=== PATIENT | female | born 1955 | race Caucasian/White ===

== ENCOUNTER 2023-05-24 20:56 | Inpatient (IN) | payer MEDICARE, OTHER, SELFPAY ==
[2023-05-24 15:58] VITALS: BP 139/74
--- NOTE | 2023-05-24 17:15 | ED.GENMED ---
History of Present Illness
General
Chief Complaint: Cough
Source: patient
Time Seen by Provider: 05/24/23 17:04
Travel History
Have you had any contact with someone who has COVID-19?: No
Do you have any symptoms of coronavirus? Fever > 100 degrees, chills, cough, shortness of breath, sore throat, loss of taste or smell, muscle aches, or headache?: No
History of Present Illness
History of Present Illness:
67-year-old female presents to the emergency room complaining of cough which has been present for the past 2 to 3 months. Patient had a chest x-ray April which was evidently unremarkable. She is also complaining of a constant pain in her right
upper quadrant which has been present for quite some time. Patient has had a fever over the past 2 to 3 days. Temperature in triage was 100.7. Patient was sent to the emergency by her primary care provider. It was noted that the patient had a CT
performed October 14 for abdominal pain. At that time there was a abnormality noted in the liver. Patient was unaware of this finding. The interpretation of the CT at that time suggest this liver lesion could be infection or tumor. Primary care
doctor was concerned the fever may be related to this prompting the referral to the emergency room.
Past History
Past History
ED Past Medical History: Fibromyalgia
ED Past Surgical History: , Gynecological (hysterectomy, lumpectomy) and Tonsilectomy
Social History
Tobacco: Non-smoker
Alcohol: Occasional
Drug: None
Personal:
Living: with family
Employment: Employed
Phy Exam
Physical Exam
Physical Exam:
General: Awake, Alert, Oriented X3. No acute distress.
Vitals: unremarkable
Head: Atraumatic
Eyes: Pupils equal, EOMI
Throat: Airway intact, no exudates
Neck: Trachea midline
Lungs: Clear and equal b/l
Heart: Regular rate, no murmurs
Abd: Soft, mild right upper quadrant tenderness palpation, No pulsatile mass
Neuro: Nonfocal
Skin: Warm, dry, no rash
Extremities: pulses equal b/l, no edema
Course
Orders/Labs/Results
Orders:
Orders
05/24/23 17:15
Cardiac Monitoring- Treatment ONCE
0.9% Sodium Chloride 1000 ml [Nss] 1,000 ml IV BOLUS
Acetaminophen [Tylenol] 650 mg PO NOW STA
05/24/23 17:22
CT Chest/abd/pel W Iv Cont Urgent
Comment:
Reason For Exam: fever, abd pain, abnormal appearing liver CT october
05/24/23 17:37
Complete Blood Count/With Diff Urgent
Comprehensive Metabolic Panel Urgent
Lactic Acid Q4H
Comment: CANCEL 2nd LACTIC ACID IF 1st LACTIC ACID IS LESS THAN 2
Blood Culture Q30M
AUDRA Source: Blood/Venous
Specimen Description:
05/24/23 17:40
Ibuprofen [Motrin] 400 mg PO NOW STA
05/24/23 18:36
Urinalysis Reflex To Culture Urgent
Date Specimen was Collected: 05/24/23
Time Specimen was Collected: 18:13
Urine Microscopic Reflex Cult Urgent
05/24/23 18:40
Blood Culture Q30M
AUDRA Source: Blood/Venous
Specimen Description:
05/24/23 21:30
Lactic Acid Q4H
Comment: CANCEL 2nd LACTIC ACID IF 1st LACTIC ACID IS LESS THAN 2
Abnormal Lab Results
05/24/23 05/24/23
17:37 18:36
WBC 11.6 H 10^3/uL
(4.8-10.8)
MCHC 32.7 L g/dL
(33.0-37.0)
Abs Immat Gran (auto) 0.1 H 10^3/uL
(0-0.05)
Absolute Neuts (auto) 9.3 H 10^3/uL
(1.4-6.5)
Absolute Lymphs (auto) 0.7 L 10^3/uL
(1.2-3.4)
Absolute Monos (auto) 1.5 H 10^3/uL
(0.1-0.6)
Neutrophils % 80.4 H %
(42.2-75.2)
Lymphocytes % 6.1 L %
(20.5-51.1)
Monocytes % 12.6 H %
(1.7-9.3)
Carbon Dioxide 31 H mmol/L
(22-30)
Glucose 102 H mg/dl
(70-99)
AST 69 H U/L
(14-36)
ALT 39 H U/L
(0-35)
Alkaline Phosphatase 293 H U/L
(38-126)
Total Protein 5.9 L g/dl
(6.3-8.2)
Albumin 3.4 L g/dl
(3.5-5.0)
Urine Ketones 2+ A
(Negative)
Leukocyte Esterase Rfl Trace A
(Negative)
Urine Bacteria (Reflex) Few A
(Negative)
05/24/23 17:37
05/24/23 17:37
Vital Signs
Initial and Last Documented VS:
Initial Vital Signs
Temp Pulse Resp BP Pulse Ox
100.7 F H 99 16 139/74 98
05/24/23 15:58 05/24/23 15:58 05/24/23 15:58 05/24/23 15:58 05/24/23 15:58
Last Documented Vital Signs
Temp Pulse Resp BP Pulse Ox
100.7 F H 88 15 139/74 96
05/24/23 15:58 05/24/23 17:48 05/24/23 17:48 05/24/23 15:58 05/24/23 17:48
MDM/Problems Addressed
Differential Diagnosis Includes:
pneumonia, hepatic abscess, hepatic neoplasm,
MDM/Problems Addressed:
Patient presents with fever. She has had a cough for several weeks. Labs show elevated LFTs. UA does not appear infected. CT chest/abdomen/pelvis shows abnormalities in the liver with one having rim enhancement raising ? for abscess however
other lesions are not rim-enancing. Given high fever of 103 I will start iv abx and admit
*Critical Care Note
Total Time (30-74mins, 75-104mins- exclusive of procedures): Not Applicable
ED Attending Note
-
Portions of this chart may have been created with voice recognition software.� Occasional wrong word or��sound alike� substitutions may have occurred due to the inherent limitations of voice recognition software.
Discharge Plan
Departure
Patient Disposition: Admit
Date of Disposition: 05/24/23
Time of Disposition: 20:13
Admit to: Med/Surg
Presentation/result/management discussed w/ accepting MD/DO: Hospitalist
Condition: Fair
Discharge Problem:
Fever, Liver mass
Prescriptions:
No Action
cholecalciferol (vitamin D3) [Vitamin D3] 400 UNITS tablet
400 units PO DAILY
esomeprazole magnesium [Nexium 24HR] 20 MG capsule,delayed release(DR/EC)
20 mg PO DAILY
omega 8-art-kyj-fish oil [Fish Oil] 1,000 mg (120 mg-180 mg) Capsule
1 cap PO DAILY Qty: 0
multivitamin Tablet
1 tab PO DAILY
benzonatate 200 mg capsule
200 mg PO TID
albuterol sulfate 90 mcg/actuation HFA aerosol inhaler
2 puff INHALATION R Q4 PRN (Reason: sob/wheezing)
Referrals:
Yanni Kuo DO [Family Provider] -
Interventions
Interventions:
*Risk Screen - Suicide Last Done: 05/24/23 17:47
*General Assessment Last Done: 05/24/23 17:47
*Neglect/Abuse Screening Last Done: 05/24/23 17:47
ED- Fall Risk Assessment Last Done: 05/24/23 17:47
*ED COVID-19 Vaccine History Last Done: 05/24/23 15:58
ED- Pulmonary Assessment Last Done: 05/24/23 17:47
[2023-05-24] MEDS: NSS 1000 IV ×2 (17:36→22:16)
[2023-05-24] MEDS: MOTRIN 400 MG PO (17:42)
[2023-05-24 17:44] LABS: % Basophils 0.5 % (0-2); % Immature Granulocytes 0.4 % (0-0.5); % Lymphocytes 6.1 % (20.5-51.1); % Monocytes 12.6 % (1.7-9.3); % Neutrophils 80.4 % (42.2-75.2); Absolute Basophils 0.1 10^3/uL (0-0.2); Absolute Immature Granulocytes 0.1 10^3/uL (0-0.05); Absolute Lymphocytes 0.7 10^3/uL (1.2-3.4); Absolute Monocytes 1.5 10^3/uL (0.1-0.6); Absolute Neutrophils 9.3 10^3/uL (1.4-6.5); Hematocrit 38.8 % (37.0-47.0); Hemoglobin 12.7 g/dL (12.0-16.0); Mean Corp Hgb Conc. 32.7 g/dL (33.0-37.0); Mean Corpuscular Volume 88.6 fL (81.0-99.0); Mean Platelet Volume 10.1 fL (7.4-10.4); Nucleated Red Blood Cells % 0 %; Platelet Count 251 10^3/uL (130-400); Red Blood Cell Count 4.38 10^6/uL (4.20-5.40); Red Cell Dist. Width 13.7 % (11.5-14.5); White Blood Cell Count 11.6 10^3/uL (4.8-10.8)
[2023-05-24 17:56] LABS: Lactic Acid 1.2 mmol/L (0.7-2.0)
[2023-05-24 17:58] LABS: ALT (SGPT) 39 U/L (0-35); AST (SGOT) 69 U/L (14-36); Albumin 3.4 g/dl (3.5-5.0); Alkaline Phosphatase 293 U/L (38-126); Blood Urea Nitrogen 17 mg/dl (7-17); Calcium 9.2 mg/dl (8.4-10.2); Carbon Dioxide 31 mmol/L (22-30); Chloride 99 mmol/L (98-107); Glucose 102 mg/dl (70-99); Potassium 4.1 mmol/L (3.5-5.1); Sodium 137 mmol/L (135-145); Total Bilirubin 0.8 mg/dl (0.2-1.3); Total Protein 5.9 g/dl (6.3-8.2); eGFR > 60.00
[2023-05-24 18:00] VITALS: BP 126/49
[2023-05-24 18:50] LABS: Urine Albumin Trace (Neg - Trace); Urine Bilirubin Negative (Negative); Urine Character Clear (Clear); Urine Color Yellow; Urine Glucose Negative (Negative); Urine Ketone 2+ (Negative); Urine Leukocyte Trace (Negative); Urine Nitrite Negative (Negative); Urine Occult Blood Negative (Negative); Urine Urobilinogen 1+ (Neg - 1+)
[2023-05-24 18:57] LABS: Urine Red Blood Cell None Seen /HPF (0-2); Urine Squamous Cell >30 /LPF (Few)
[2023-05-24 18:58] LABS: Urine Bacteria Few (Negative)
[2023-05-24 20:00] VITALS: BP 138/65
[2023-05-24] MEDS: FLAGYL 500 MG 100 IV (20:35)
--- NOTE | 2023-05-24 20:46 | HPS.HSE ---
Addendum entered and electronically signed by Dayday Herman DO 05/24/23 23:59:
A/P:
COVID Positive
- Testing in ED shows COVID-19 positive.
- Suspect this is etiology of fever, though hepatic source may still be possible.
- Follow proper precautions.
- Not hypoxemic, etc at present so no role for any additional COVID-specific therapies.
- Follow for any new / worsening symptoms.
Original Note:
Family Physician
-
Family Physician: Yanni Kuo
Chief Complaint
-
Fever, Cough
History of Present Illness
Patient is a 67y F with PMH significant for GERD who presents to ED complaining of fever, cough and abdominal pain. Patient states that she has had a hacking, minimally productive cough for about 12 weeks now. She has been evaluated as an
outpatient by her PCP and Pulmonary. CXR has been unremarkable. She was recently treated with empiric courses of doxycycline (04/28 - 05/04) and azithromycin (05/09 - 05/13) without improvement in her symptoms. For the past 2 days, patient has also
noted fever at home as high as 104. Today she spoke with her PCP who advised she present to the ED for further evaluation.
Patient notes that she has had intermittent R flank and RUQ abdominal pain for several months.
She was seen here in October 2022 for this complaint and found to have abnormal CT at that time. She was referred for Surgical evaluation for possible biliary colic and underwent cholecystectomy in November 2022.
Patient states that she has continued to have intermittent discomfort since that time. She notes 40 lbs of weight loss (unintentional) since September 2022.
Patient states that she is up to date with mammography. Her last colonoscopy was about 5-7 years ago by her recollection.
Medical History
Past Medical History
Past Medical History: Reports Other
Additional Past Medical History:
GERD
Past Surgical History: Reports Other
Additional Past Surgical History:
Right DONNA
Lap Cholecystectomy
Bladder Sling
Right Lumpectomy (benign)
T&A
[facility]
Social History
Tobacco: Non-smoker
Alcohol: Occasional (Rare)
Drug: None
Personal:
Living: With Family
Family History
Family History: Other (Sister (x 2): Breast Cancer Brother: Colon Cancer Brother: Esophageal Cancer)
Allergies / Home Medications
Allergies reflects when Allergies were last updated in [employer].
Home Medications with original date entered in [employer]
Allergy/Medication List:
Allergies
Allergy/AdvReac Type Severity Reaction Status Date / Time
bee venom protein (honey bee) Allergy hives, Verified 05/24/23 16:01
racing
heart
morphine Allergy Itching Verified 05/24/23 16:01
oxycodone HCl [From Percocet] Allergy itching, Verified 05/24/23 16:01
tightness
Penicillins Allergy rash, Verified 05/24/23 16:01
tight
throat
propoxyphene napsylate Allergy itching, Verified 05/24/23 16:01
[From Darvocet-N 100] tightness
shellfish derived Allergy tight, Verified 05/24/23 16:01
itchy
throat
Home Medications
cholecalciferol (vitamin D3) 10 mcg (400 unit) tablet (Vitamin D3) 400 units PO DAILY Supplement 06/03/19
esomeprazole magnesium 20 mg capsule,delayed release (Nexium 24HR) 20 mg PO DAILY Gastrointestinal Issue 06/03/19
omega 4-msb-qnl-fish oil 1,000 mg (120 mg-180 mg) capsule (Fish Oil) 1 cap PO DAILY High Cholesterol ##0 11/16/22
albuterol sulfate 90 mcg/actuation aerosol inhaler 2 puff inhalation R Q4 PRN sob/wheezing 05/24/23
benzonatate 200 mg capsule 200 mg PO TID 05/24/23
multivitamin 1 tab PO DAILY 05/24/23
Review of Systems
-
History Source: Patient
A 12 point ROS was completed and negative except as noted: Yes
Constitutional: Reports Fever, Weight Loss and Fatigue; Denies Night Sweats or Chills
EENT: Denies Sore Throat
Respiratory: Reports Cough; Denies Hemoptysis or Trouble Breathing
Cardiac: Denies Chest Pain, Diaphoresis or Palpitations
Abdomen/GI: Reports Abdominal Pain and Diarrhea (with fatty foods); Denies Nausea or Vomiting
: Denies Dysuria or Frequency
Musculoskeletal: Denies Joint Pain or Edema
Neurological: Denies Dizzy or Headache
Psych: Denies Depression or Anxiety
Physical Exam
Vital Signs
Vital Signs
Temp Pulse Resp BP Pulse Ox
100.3 F 89 15 138/65 94
05/24/23 20:05 05/24/23 20:00 05/24/23 20:00 05/24/23 20:00 05/24/23 20:00
Physical Exam
General: Other (67y F in no acute distress)
HEENT: Moist mucous membranes and PERRLA
Respiratory: Other (Few rales at R base. Otherwise clear. Cough with deep inspiration.)
Cardiac: S1/S2 and Regular Rhythm; No Murmur
GI: Soft, Non Distended, Normal Bowel Sounds and Other (Pos tenderness along entire upper abdomen. No rebound / guarding.)
Musculoskeletal: No Clubbing, No Cyanosis and No Edema
Neuro: AO x 3
Laboratory Results
-
05/24/23 17:37
05/24/23 17:37
Laboratory Results
Lactic Acid 1.2 mmol/L (0.7-2.0) 05/24/23 17:37
Total Bilirubin 0.8 mg/dl (0.2-1.3) 05/24/23 17:37
AST 69 U/L (14-36) H 05/24/23 17:37
ALT 39 U/L (0-35) H 05/24/23 17:37
Alkaline Phosphatase 293 U/L (38-126) H 05/24/23 17:37
Impression/Plan
-
A/P: Patient is a 67y F with PMH significant for GERD who presents to ED complaining of fever, cough and abdominal pain.
Fever
Hepatic Lesions
- Admit for further evaluation and treatment.
- ? tumor fever secondary to apparent metastases v hepatic abscess(es).
- Cover with IV abx for now (Levo / Flagyl given PCN allergy).
- IR eval in AM for biopsy / biopsies - multiple areas with different appearance / morphologies.
- Follow-up results of biopsy re: Gram stain, culture, cytology.
- Follow-up systemic cultures / blood cultures.
- Consider ID and / or Oncology consults depending on results of biopsies / clinical course.
- COVID / influenza testing now for completeness given new fever last 2 days.
- Follow for any new / worsening symptoms.
- Note family history of malignancy (GI and breast).
- Would likely benefit from endoscopic evaluation given fam history of esophageal and colon cancer as well as personal history of GERD.
- Will consult GI for further recommendations.
Cough
- Cough for the past 12 weeks seems likely secondary to diaphragmatic irritation from liver lesion(s).
- Supportive care.
- No evidence of primary pulmonary disease, pneumonia, etc.
GERD
- Continue daily PPI.
DVT Prophylaxis: SCDs
Code Status: Full
[2023-05-24 21:06] LABS: COVID-19 Antigen Positive (Negative)
[2023-05-24 21:53] VITALS: BP 127/60; BMI 28.5
[2023-05-24] MEDS: LEVAQUIN 100 IV (22:23)
[2023-05-25] VITALS (7 sets, daily range): BP systolic 95–145; BP diastolic 56–88; BMI 28.5
[2023-05-25] MEDS: FLAGYL 500 MG 100 IV ×2 (03:17→14:14)
[2023-05-25 04:56] LABS: Hematocrit 36.1 % (37.0-47.0); Hemoglobin 11.9 g/dL (12.0-16.0); Mean Corpuscular Hgb 29.4 pg (27.0-31.0); Mean Corpuscular Volume 89.1 fL (81.0-99.0); Mean Platelet Volume 10.3 fL (7.4-10.4); Platelet Count 231 10^3/uL (130-400); Red Blood Cell Count 4.05 10^6/uL (4.20-5.40); Red Cell Dist. Width 13.6 % (11.5-14.5); White Blood Cell Count 9.2 10^3/uL (4.8-10.8)
[2023-05-25 05:19] LABS: ALT (SGPT) 37 U/L (0-35); AST (SGOT) 65 U/L (14-36); Albumin 3.1 g/dl (3.5-5.0); Alkaline Phosphatase 282 U/L (38-126); Blood Urea Nitrogen 12 mg/dl (7-17); Calcium 8.4 mg/dl (8.4-10.2); Carbon Dioxide 27 mmol/L (22-30); Chloride 105 mmol/L (98-107); Direct Bilirubin 0.6 mg/dl (0.0-0.4); Estimated Creatinine Clearance 82 ml/min; Glucose 95 mg/dl (70-99); Potassium 3.9 mmol/L (3.5-5.1); Sodium 136 mmol/L (135-145); Total Bilirubin 0.6 mg/dl (0.2-1.3); Total Protein 5.4 g/dl (6.3-8.2); eGFR > 60.00
[2023-05-25] MEDS: TESSALON PERLES 200 MG PO ×3 (06:51→20:15)
[2023-05-25 08:07] LABS: INR 1.22; PT 15.2 Sec (11.4-14.6)
[2023-05-25] MEDS: NSS (PRESERVATIVE FREE) 10 ML IV (08:29)
[2023-05-25] MEDS: PROTONIX IV 40 MG IV (08:30)
--- NOTE | 2023-05-25 09:08 | W.PN.HOSP.TC ---
Today's Communication/Plan
-
start paxlovid
levaquin/Flagyl
F/U IR aspiratoin/biopsy results
Assessment / Plan
Assessment / Plan
A/P: � Patient is a 67y F with PMH significant for GERD who presents to ED complaining of fever, cough and abdominal pain.
CT A/P
IMPRESSION: No acute pathology of the chest, abdomen pelvis identified.
Findings suggesting hepatic metastasis. A small abscess in the upper posterior right lobe of the liver cannot be excluded. Comparison is difficult because the prior study was performed without IV contrast.
Hepatic cysts. Grossly stable.
Minimal free fluid about the liver probably ascites. Probably stable
Mild hepatomegaly. Progressed
Covid +
Fevers
-patient is not hypoxic
-will start Paxlovid (no drug interactions)
Hepatic Lesions
�- ? tumor fever secondary to apparent metastases v hepatic abscess(es).
�- conitnue Levaquin/Flagyl given penicillin allergy
�- IR eval in AM for biopsy / biopsies - multiple areas with different appearance / morphologies.
�- Follow-up results of biopsy re: Gram stain, culture, cytology.
�- Follow-up systemic cultures / blood cultures.
�- Consider ID and / or Oncology consults depending on results of biopsies / clinical course. Discussed briefly with Oncology this AM; will follow up once path received
�- Note family history of malignancy (GI and breast).
�- Would likely benefit from endoscopic evaluation given fam history of esophageal and colon cancer as well as personal history of GERD.
�- Will consult GI for further recommendations.
GERD
�- Continue daily PPI.
DVT Prophylaxis:� SCDs while awaiting upcoming procedure
Code Status:� Full
Anticipated Discharge: 24 - 48 hours
Subjective/Interval History
-
Date of Service: May 25, 2023
she feels fatigued, didn't sleep well
low grade fevers
mild shortness of breath, no chest pain
Objective Data
-
Labs:
Laboratory Results
05/25/23 05/25/23
04:42 07:28
WBC 9.2
Hgb 11.9 L
Hct 36.1 L
Plt Count 231
PT 15.2 H
INR 1.22
Sodium 136
Potassium 3.9
Chloride 105
Carbon Dioxide 27
BUN 12
Creatinine 0.7
Glucose 95
Calcium 8.4
Total Bilirubin 0.6
AST 65 H
ALT 37 H
Alkaline Phosphatase 282 H
Vital Signs:
Vital Signs
Temp Pulse Resp BP Pulse Ox
100.5 F H 94 18 145/81 94
05/25/23 07:05 05/25/23 07:05 05/25/23 07:05 05/25/23 07:05 05/25/23 07:05
Review of Systems
-
History Source: Patient
All other systems: Reviewed and negative
Physical Exam
-
General: No Apparent Distress and Conversant
HEENT: PERRLA
Respiratory: Negative Wheezes
Cardiac: Regular Rhythm and S1/S2
GI: Soft and Nontender
Musculoskeletal: No Edema
Skin: Warm and Dry; Negative Rash
Neuro: AO x 3
Psych: Calm
Data Reviewed
-
Diagnostic Radiology: Report Reviewed by me
Labs: Labs Reviewed by me
--- NOTE | 2023-05-25 09:19 | CON.GI ---
Addendum entered and electronically signed by Fernanda Sanchez MD 05/25/23 15:53:
I saw and examined the patient.
The APPLICATIONS PROCESSOR or PA's note was reviewed and I agree with the note.
Comment: 67-year-old female with history of osteoarthritis, fibromyalgia, colon polyps presenting with complaints of right upper quadrant abdominal pain which has been chronic for several months, fever and cough, noted to be COVID-positive, CT scan
of the chest/abdomen and pelvis with IV contrast showing multiple various rounded hypodense hepatic lesions in the right lobe of the liver concerning for metastatic disease. Patient denies any other GI complaints, no nausea, vomiting, trouble
swallowing. No constipation, diarrhea, blood in the stool or black stool. She did lose 40 pounds since October 2022. History of colonoscopy about 7 or 8 years ago at [place], polyps removed, family history of colon cancer in brother. Elevated
transaminases and alkaline phosphatase noted.
Reviewed CT 10/14/2022, 10 cm area of heterogeneous decreased attenuation in the right lobe of the liver which seems to be new, rule out infection versus tumor.
Patient just came back from IR guided biopsy of the hepatic lesion, has some discomfort in the area of the biopsy but not significant.
No family history of liver disease, cirrhosis. Social alcohol, not on a regular basis. Does not smoke.
-Right upper quadrant abdominal pain, CT scan showing possible metastatic lesions in the liver, primary not known yet
No evidence of underlying cirrhosis
Await results from IR guided liver biopsy
Will check hepatitis B/C, AFP, CEA, CA 19�9
Will check MRI of the liver. Currently has cough related to COVID. Once symptoms better, needs MRI of the liver with and without contrast as inpatient.
Oncology evaluation.
Monitor liver enzymes, elevation likely related to underlying tumor
-History of colon cancer in brother and personal history of colon polyps
Overdue for colonoscopy. Await IR biopsies first
-COVID-positive
Management per medical team
Will follow for now
Original Note:
Consultation
-
Date/Time Consultation Requested: 05/24/232225
Date/Time Consultation Performed: 05/25/23 0900
Requesting Provider: Dr. Herman
Performing Provider: Dr. Sanchez/VLAD Coy
Reason for Consultation: Liver lesions
Medical History
Chief Complaint / HPI
Chief Complaint: fever
History of Present Illness:
67 y/o female with PMH of fibromyalgia, anxiety, osteoarthritis, GERD, personal hx of colon polyps, cholelithiasis s/p cholecystectomy 11/2022 who presents to the ER with cough x 2 months, fever, and RUQ pain. Recently as an outpatient she was
treated with Doxycycline (04/28/23-05/04/23) and Azithromycin
(05/09/23-05/13/23) for her cough without any change in sx. Patient was found to be positive for COVID. She was also found to multiple liver lesions in the right lobe of the liver prompting GI consultation. The patient states that since September 2022 she
has had intermittent RUQ pain that she describes as dull with 'jabs' of pain. She would also have intermittent fevers (low grade) intermittently as well. She has lost 40 lbs since November. She denies any nausea, vomiting, melena, hematochezia,
dysphagia, odynophagia, acholic stools, bilirubinuria, early satiety or pruritus. She does state that she developed a cough about 2 months ago that is dry. She denies any hx of hepatitis, jaundice, known liver disease, tattoos or IVDA. She drinks
rare ETOH (3 drinks a year) she does not smoke. She has a fam hx of colon cancer in 1 brother and esophageal cancer in another, sister with breast cancer. She has a personal hx of colon polyps. She states her last colonoscopy was about 8-9 years ago
in [place] and she had colon polyps and she was told to have a repeat in 5 years. {The patient did have a CT of the Abd/Pelvis without oral or IV contrast performed
10/14/22 when she went to the ER with right sided pain (full report will be detailed below-> excerpt):Evaluation of the solid organs of the abdomen are markedly limited without intravenous contrast, including the liver. Subcentimeter simple hepatic
cyst is seen image 22 series 202 and larger 5 cm simple cyst is seen, image 23 series 202. There is a markedly ill-defined, somewhat heterogeneous area of decreased attenuation suggested throughout the posterior segment of the right lobe of the
liver, new in the interval since prior study overall measuring at least 10 cm. Cholelithiasis is again noted. There is no biliary tract dilatation. } Patient was unaware of findings current CT performed -> CT Chest Abd/Pelvis with IV contrast
05/24/23: �No acute pathology of the chest, abdomen pelvis identified. Findings suggesting hepatic metastasis. A small abscess in the upper posterior right lobe of the liver cannot be excluded. Comparison is difficult because the prior study was
performed without IV contrast.Hepatic cysts. Grossly stable. Minimal free fluid about the liver probably ascites. Probably stable. Mild hepatomegaly. Progressed.
Past Medical History
Past Medical History: Fibromyalgia, GERD and Other (Anxiety, osteoarthritis, colon polyps, cholelithiasis)
Past Surgical History: Cholecystectomy, Gynecological (hysterectomy, bladder sling), Orthopedic (right THR, ), Tonsilectomy and Other (right lumpectomy)
Social History
Tobacco: Non-Smoker
Alcohol: Occasional (3 times a year)
Drug: None
Personal:
Living: With Family
Family History
Family History: Other (Brother colon cancer, brother esophageal cancer, sister breast cancer)
Allergies / Home Medications
Allergy/AdvReac Type Severity Reaction Status Date / Time
bee venom protein (honey bee) Allergy hives, Verified 05/24/23 16:01
racing
heart
morphine Allergy Itching Verified 05/24/23 16:01
oxycodone HCl [From Percocet] Allergy itching, Verified 05/24/23 16:01
tightness
Penicillins Allergy rash, Verified 05/24/23 16:01
tight
throat
propoxyphene napsylate Allergy itching, Verified 05/24/23 16:01
[From Darsonjat-N 100] tightness
shellfish derived Allergy tight, Verified 05/24/23 16:01
itchy
throat
Medication Instructions Recorded
cholecalciferol (vitamin D3) 10 400 units PO DAILY Supplement 06/03/19
mcg (400 unit) tablet (Vitamin D3)
esomeprazole magnesium 20 mg 20 mg PO DAILY Gastrointestinal 06/03/19
capsule,delayed release (Nexium Issue
24HR)
omega 2-hap-ugk-fish oil 1,000 mg 1 cap PO DAILY High Cholesterol ##0 11/16/22
(120 mg-180 mg) capsule (Fish Oil)
albuterol sulfate 90 mcg/actuation 2 puff inhalation R Q4 PRN 05/24/23
aerosol inhaler sob/wheezing
benzonatate 200 mg capsule 200 mg PO TID 05/24/23
multivitamin 1 tab PO DAILY 05/24/23
Review of Systems
-
All other systems: A 12 pt ROS was Negative except as stated above in HPI
Vital Signs
Temp Pulse Resp BP Pulse Ox
100.5 F H 94 18 145/81 94
05/25/23 07:05 05/25/23 07:05 05/25/23 07:05 05/25/23 07:05 05/25/23 07:05
Physical Exam
Exam
General: No Apparent Distress
HEENT: Anicteric
Respiratory: Clear
Cardiac: Regular Rhythm
GI: Soft, Non Distended, Normal Bowel Sounds and Tender (Upper abdomen R>L)
Musculoskeletal: No Edema
Skin: Warm and Dry
Neuro: AO x 3
Psych: Calm
Results
WBC 9.2 10^3/uL (4.8-10.8) 05/25/23 04:42
Hgb 11.9 g/dL (12.0-16.0) L 05/25/23 04:42
Hct 36.1 % (37.0-47.0) L 05/25/23 04:42
MCV 89.1 fL (81.0-99.0) 05/25/23 04:42
Plt Count 231 10^3/uL (130-400) 05/25/23 04:42
Absolute Neuts (auto) 9.3 10^3/uL (1.4-6.5) H 05/24/23 17:37
PT 15.2 Sec (11.4-14.6) H 05/25/23 07:28
INR 1.22 05/25/23 07:28
Sodium 136 mmol/L (135-145) 05/25/23 04:42
Potassium 3.9 mmol/L (3.5-5.1) 05/25/23 04:42
Chloride 105 mmol/L (98-107) 05/25/23 04:42
Carbon Dioxide 27 mmol/L (22-30) 05/25/23 04:42
BUN 12 mg/dl (7-17) 05/25/23 04:42
Creatinine 0.7 mg/dL (0.6-1.0) 05/25/23 04:42
Calcium 8.4 mg/dl (8.4-10.2) 05/25/23 04:42
Total Bilirubin 0.6 mg/dl (0.2-1.3) 05/25/23 04:42
AST 65 U/L (14-36) H 05/25/23 04:42
ALT 37 U/L (0-35) H 05/25/23 04:42
Alkaline Phosphatase 282 U/L (38-126) H 05/25/23 04:42
Diagnostic Image Results:
CT Chest/Abd/Pelvis with IV contrast 05/24/23:
FINDINGS:
There are no abnormal pleural or parenchymal pulmonary masses.
There is no significant parenchymal airspace disease.
There is no pleural effusion.
There are no abnormal mediastinal masses.
There is no hilar lymphadenopathy.
There is no mediastinal lymphadenopathy.
There is no axillary lymphadenopathy.
There is mild right lower lobe atelectasis versus
Abdomen and pelvis: The spleen, gallbladder and pancreas are unremarkable. The liver is enlarged measuring 19.7 cm in length. It previously measured 18.9 cm in length. There are multiple various sized rounded hypodense hepatic lesions, most in the
right lobe of liver, concerning for metastatic disease. The largest is in the posterior right lobe and measures approximately 8.7 cm. There are a few additional well-circumscribed hypodense hepatic lesions consistent with cysts. The largest in the
left lobe of the liver. It measures 4.5 cm. There is a ring-enhancing mass in the posterior superior right lobe liver seen best on image 11 series 201 measuring 1.7 cm. This may represent neoplasm or infection. There is minimal free fluid about the
liver seen best about image 16 series 301.
The adrenal glands and kidneys are unremarkable. The abdominal aorta is normal caliber. No significant lymphadenopathy is noted. Bowel loops are normal caliber. The terminal ileum and appendix are within normal limits.
The urinary bladder is unremarkable.
Osseous structures of the chest, abdomen and pelvis show mild degenerative disease and a mild scoliosis. There has been a right hip replacement.
CXR 05/09/23:
IMPRESSION:
No active cardiopulmonary disease.
CT Abd/Pelvis without IV/Oral contrast 10/14/22:
FINDINGS:
CHEST:The included small portion of the lower chest reveal some subsegmental atelectasis, cannot exclude some mild right lower lobe scarring.
ABDOMEN:� Evaluation of the solid organs of the abdomen are markedly limited without intravenous contrast, including the liver. Subcentimeter simple hepatic cyst is seen image 22 series 202 and larger 5 cm simple cyst is seen, image 23 series 202.
There is a markedly ill-defined, somewhat heterogeneous area of decreased attenuation suggested throughout the posterior segment of the right lobe of the liver, new in the interval since prior study overall measuring at least 10 cm. Cholelithiasis
is again noted. There is no biliary tract dilatation. There is no gross focal abnormality of the unenhanced pancreas, spleen or adrenal glands. No findings are seen to suggest renal/ureteral calculus or urinary tract dilatation bilaterally. There is
mild bilateral symmetric perinephric stranding, predominantly unchanged. The abdominal aorta is normal in caliber. There is no retroperitoneal lymphadenopathy. There is some scattered colonic diverticulosis, evaluation of the intestinal tract
markedly limited without oral or intravenous contrast, without intestinal obstruction or free air. There are no right lower quadrant inflammatory changes.
PELVIS:Evaluation of the true pelvis is markedly limited, including the virtually completely empty urinary bladder as a result of marked beam hardening artifact from the right hip arthroplasty. Distal colonic diverticulosis is suspected.
SKELETON:Degenerative changes are seen throughout the included lower thoracic and lumbar spine.
Prior GI Procedures:
EGD: Per patient 'in the area' 'GERD' 'maybe 9 years ago'.
Colonoscopy: Per patient [facility]' 'polyps' was told to 'repeat in 5 years'.
Assessment / Plan
-
67 y/o female with PMH of fibromyalgia, anxiety, osteoarthritis, GERD, personal hx of colon polyps, cholelithiasis s/p cholecystectomy 11/2022 who presents to the ER with cough x 2 months, fever, and RUQ pain. Recently as an outpatient she was
treated with Doxycycline (04/28/23-05/04/23) and Azithromycin
(05/09/23-05/13/23) for her cough without any change in sx. Patient was found to be positive for COVID. She was also found to multiple liver lesions in the right lobe of the liver prompting GI consultation. CT of the abdomen and pelvis without IV or
oral contrast performed on 10/14/2022 showed subcentimeter simple hepatic cyst and larger 5 cm simple cyst. There was a markedly ill-defined somewhat heterogeneous area of decreased attenuation suggested throughout the posterior segment of the right
lobe of the liver that was new in the interval since prior study measuring at least 10 cm. These findings could represent tumor or infection. The patient now returns with repeat CT findings of the chest abdomen and pelvis with IV contrast
performed on 05/24/2023 showing liver enlarged at 19.7 cm previously measuring 18.9 cm. Multiple various sized rounded hypodense hepatic lesions mostly in the right lobe of the liver concerning for metastatic disease. There are a few additional
well-circumscribed hypodense lesions consistent with cysts. There is a ring-enhancing mass in the posterior superior right lobe of the liver measuring 1.7 cm. This may represent neoplasm or infection. There is minimal free fluid about the liver.
The patient has a total bilirubin of 0.6 with a direct of 0.6, AST of 65 down from 69, ALT of 37 down from 39 and an alk phos of 282 down from 293. Of note the patient has always had a mildly elevated alk phos dating back to 2010. The patient had
mildly elevated AST (76) and ALT (55), alk phos (128) on 11/21/22 the day following cholecystectomy.
Impression/Plan:
1. Hepatic lesions
-IR consultation bx
-Check AFP, CEA, Ca 19-9
-Likely need Oncology consultation
-Further recommendations to be forthcoming
2. Elevated Liver enzymes
--Could be secondary to lesions, Covid, recent abx
-Continue to trend, add GGTP
-Obtain MRI when able
3. Fever
-intermittent since September with high fever now. High fever likely secondary to COVID
-Await cultures
-IR for bx of liver lesions
-Currently on COVID precautions
4. COVID
-Not requiring supplemental oxygen
5. Hx of colon polyps/Family hx colon cancer in first degree relative
-Overdue for repeat colonoscopy. Per patient last colonoscopy 8-9 years ago and had polyp at that time. Brother with colon ca.
6. GERD
-On Nexium at home, so breakthrough. Last EGD around same time as colonoscopy.
-Continue PPI.
Data Reviewed
-
Radiology: Report Reviewed by me
CT Scan: Report Reviewed by me
Old Records: Reviewed
-
-
Thank you for consultation and allowing me to participate in the patient's care. Please call the workers compensation analyst GI physician during the after hours with any questions or concerns.
[2023-05-25] MEDS: D5/0.9% SODIUM CHLORIDE 1000 IV (09:50)
[2023-05-25] MEDS: PAXLOVID 2X150 MG-100 MG DOSE PACK 1 DOSE PO ×2 (09:51→20:11)
[2023-05-25 11:18] LABS: GGTP 192 U/L (12-43)
[2023-05-25 11:50] LABS: CEA 0.71 ng/ml
[2023-05-25 12:41] LABS: AFP Male/Tumor Marker 893 ng/ml
--- NOTE | 2023-05-25 14:21 | W.PN.UPDATE ---
Update Note
Progress Note Update
biopsy performed, no return of fluid; biopsy sent for pathology
will therefore stop antibiotics
--- NOTE | 2023-05-25 14:26 | CM ---
Initial assessment completed with 2 daughters. Patient was off unit for liver biopsy. Patient lives with her and 2 adult children in a 2 story home with B/B on 2nd and 04/17 on , 5 steps to enter, No DME or O2 in home. [employer] patient was
independent, drove and worked FT. Daughter is POA, support system is and 7 children. Pharmacy is [facility] on [address] in [place] and PCP is Dr. Kuo with [facility]. Anticipate no needs at discharge. Will continue to
follow should needs change based on biopsy results.
[2023-05-25] MEDS: TORADOL 15 MG IV (15:19)
[2023-05-25] MEDS: TYLENOL 650 MG PO (20:11)
[2023-05-26 03:58] VITALS: BP 133/76
[2023-05-26 07:03] VITALS: BP 126/69
[2023-05-26 07:32] LABS: % Basophils 0.4 % (0-2); % Eosinophils 2.6 % (0-6); % Immature Granulocytes 0.8 % (0-0.5); % Monocytes 14.3 % (1.7-9.3); % Neutrophils 71.9 % (42.2-75.2); Absolute Eosinophils 0.2 10^3/uL (0-0.7); Absolute Immature Granulocytes 0.1 10^3/uL (0-0.05); Absolute Lymphocytes 0.7 10^3/uL (1.2-3.4); Absolute Monocytes 1.1 10^3/uL (0.1-0.6); Absolute Neutrophils 5.3 10^3/uL (1.4-6.5); Hematocrit 35.2 % (37.0-47.0); Hemoglobin 11.8 g/dL (12.0-16.0); Mean Corp Hgb Conc. 33.5 g/dL (33.0-37.0); Mean Corpuscular Hgb 29.2 pg (27.0-31.0); Mean Corpuscular Volume 87.1 fL (81.0-99.0); Nucleated Red Blood Cells % 0 %; Platelet Count 210 10^3/uL (130-400); Red Blood Cell Count 4.04 10^6/uL (4.20-5.40); Red Cell Dist. Width 13.7 % (11.5-14.5); White Blood Cell Count 7.4 10^3/uL (4.8-10.8)
[2023-05-26 07:47] LABS: ALT (SGPT) 29 U/L (0-35); AST (SGOT) 58 U/L (14-36); Albumin 2.8 g/dl (3.5-5.0); Alkaline Phosphatase 241 U/L (38-126); Blood Urea Nitrogen 16 mg/dl (7-17); Calcium 8.5 mg/dl (8.4-10.2); Carbon Dioxide 27 mmol/L (22-30); Chloride 103 mmol/L (98-107); Direct Bilirubin 0.4 mg/dl (0.0-0.4); Estimated Creatinine Clearance 82 ml/min; Glucose 101 mg/dl (70-99); Potassium 3.8 mmol/L (3.5-5.1); Sodium 138 mmol/L (135-145); Total Bilirubin 0.6 mg/dl (0.2-1.3); Total Protein 5.1 g/dl (6.3-8.2); eGFR > 60.00
[2023-05-26] MEDS: PROTONIX IV 40 MG IV (09:13)
[2023-05-26] MEDS: NSS (PRESERVATIVE FREE) 10 ML IV (09:14)
[2023-05-26] MEDS: PAXLOVID 2X150 MG-100 MG DOSE PACK 1 DOSE PO ×2 (09:14→20:23)
[2023-05-26 11:20] VITALS: BP 136/74
[2023-05-26] MEDS: TESSALON PERLES 200 MG PO ×2 (12:02→20:29)
--- NOTE | 2023-05-26 12:28 | W.PN.HOSP.TC ---
Today's Communication/Plan
-
c/s ID and ONC, check MRI abd
Assessment / Plan
Assessment / Plan
67y F with PMH significant for GERD who presented complaining of fever, cough and abdominal pain.
Gen: NAD, AAOx3.
Eyes: EOMI, PERRLA, no scleral icterus.
Neck: supple.
CV: RRR, +S1/S2, no m/r/g.
Resp: CTAB, no rales, wheezes, or rhonchi.
Abd: +BS, soft, NT, ND
Skin: No rashes.
Neuro: CN 2-12 intact, non-focal.
Psych: Normal mood and affect.
05/24/23 18:40 Blood/Venous Blood Culture - Preliminary
No Growth in 24 hours- Final report to follow
05/24/23 17:37 Blood/Venous Blood Culture - Preliminary
No Growth in 24 hours- Final report to follow
05/24/23 20:42 Nasal Swab Influenza Types A & B (ARTURO) - Final
Negative for Influenza A & B, NAAT
Negative results must be combined with clinical observations
and patient history.
Nucleic Acid Amplification test (NAAT)performed on the
[facility] ID NOW platform.
CT C/A/P: No acute pathology of the chest, abdomen pelvis identified. Findings suggesting hepatic metastasis. A small abscess in the upper posterior right lobe of the liver cannot be excluded. Comparison is difficult because the prior study was
performed without IV contrast. Hepatic cysts. Grossly stable. Minimal free fluid about the liver probably ascites. Probably stable. Mild hepatomegaly. Progressed.
Hepatic Lesions:
-? tumor fever secondary to apparent metastases v hepatic abscess(es).
-was on Levaquin/Flagyl given penicillin allergy, now off abx as IR guided drainage without fluid, follow Bx path
-BCx NGTD
-AFP 893, CEA 0.71, CA 19-9 pending
-GI Following
-check MRI Liver (give Robitussin-AC 30min prior to MRI)
-c/s ONC
-c/s ID with fever
Acute COVID infection: Paxlovid started (no drug interactions)
GERD: cont PPI
FULL/SCDs
Anticipated Discharge: 24 - 48 hours
Subjective/Interval History
-
Date of Service: May 26, 2023
Still with cough.
Objective Data
-
Labs:
Laboratory Results
05/26/23
07:16
WBC 7.4
Hgb 11.8 L
Hct 35.2 L
Plt Count 210
Sodium 138
Potassium 3.8
Chloride 103
Carbon Dioxide 27
BUN 16
Creatinine 0.7
Glucose 101 H
Calcium 8.5
Total Bilirubin 0.6
AST 58 H
ALT 29
Alkaline Phosphatase 241 H
Vital Signs:
Vital Signs
Temp Pulse Resp BP Pulse Ox
99.4 F 83 18 126/69 96
05/26/23 07:03 05/26/23 07:03 05/26/23 07:03 05/26/23 07:03 05/26/23 07:03
I&O
05/25/23 05/26/23 05/27/23
06:59 06:59 06:59
Intake Total 870 / 870
Balance 870 / 870
--- NOTE | 2023-05-26 12:50 | W.PN.GI.CBS2 ---
Today's Communication / Plan
-
Impression/Plan:
1. Hepatic lesions, rule out primary versus metastatic lesions
Status post IR biopsy of the liver lesion, await pathology
Hepatitis B/C serologies pending
Elevated alpha-fetoprotein, normal CEA, CA 19�9 pending
Will need Oncology consultation
Will check MRI Sunday as patient is coughing and images will be compromised. Once her cough is better, we can give her some anxiolytic before sending her for MRI
2. Elevated Liver enzymes
--Could be secondary to lesions, Covid, recent abx
-Continue to trend, add GGTP
-Obtain MRI when able
3. Fever
-intermittent since September with high fever now. High fever likely secondary to COVID
-Await cultures
-IR for bx of liver lesions
-Currently on COVID precautions
4. COVID
-Not requiring supplemental oxygen
5. Hx of colon polyps/Family hx colon cancer in first degree relative
-Overdue for repeat colonoscopy. Per patient last colonoscopy 8-9 years ago and had polyp at that time. Brother with colon ca.
6. GERD
-On Nexium at home, so breakthrough. Last EGD around same time as colonoscopy.
-Continue PPI.
Assessment / Plan
-
67 y/o female with PMH of fibromyalgia, anxiety, osteoarthritis, GERD, personal hx of colon polyps, cholelithiasis s/p cholecystectomy 11/2022 who presents to the ER with cough x 2 months, fever, and RUQ pain. Recently as an outpatient she was
treated with Doxycycline (04/28/23-05/04/23) and Azithromycin
(05/09/23-05/13/23) for her cough without any change in sx. Patient was found to be positive for COVID. She was also found to multiple liver lesions in the right lobe of the liver prompting GI consultation. CT of the abdomen and pelvis without IV or
oral contrast performed on 10/14/2022 showed subcentimeter simple hepatic cyst and larger 5 cm simple cyst. There was a markedly ill-defined somewhat heterogeneous area of decreased attenuation suggested throughout the posterior segment of the right
lobe of the liver that was new in the interval since prior study measuring at least 10 cm. These findings could represent tumor or infection. The patient now returns with repeat CT findings of the chest abdomen and pelvis with IV contrast
performed on 05/24/2023 showing liver enlarged at 19.7 cm previously measuring 18.9 cm. Multiple various sized rounded hypodense hepatic lesions mostly in the right lobe of the liver concerning for metastatic disease. There are a few additional
well-circumscribed hypodense lesions consistent with cysts. There is a ring-enhancing mass in the posterior superior right lobe of the liver measuring 1.7 cm. This may represent neoplasm or infection. There is minimal free fluid about the liver.
The patient has a total bilirubin of 0.6 with a direct of 0.6, AST of 65 down from 69, ALT of 37 down from 39 and an alk phos of 282 down from 293. Of note the patient has always had a mildly elevated alk phos dating back to 2010. The patient had
mildly elevated AST (76) and ALT (55), alk phos (128) on 11/21/22 the day following cholecystectomy.
Impression/Plan:
1. Hepatic lesions, rule out primary versus metastatic lesions
Status post IR biopsy of the liver lesion, await pathology
Hepatitis B/C serologies pending
Elevated alpha-fetoprotein, normal CEA, CA 19�9 pending
Will need Oncology consultation
Will check MRI Sunday as patient is coughing and images will be compromised. Once her cough is better, we can give her some anxiolytic before sending her for MRI
2. Elevated Liver enzymes
--Could be secondary to lesions, Covid, recent abx
-Continue to trend, add GGTP
-Obtain MRI when able
3. Fever
-intermittent since September with high fever now. High fever likely secondary to COVID
-Await cultures
-IR for bx of liver lesions
-Currently on COVID precautions
4. COVID
-Not requiring supplemental oxygen
5. Hx of colon polyps/Family hx colon cancer in first degree relative
-Overdue for repeat colonoscopy. Per patient last colonoscopy 8-9 years ago and had polyp at that time. Brother with colon ca.
6. GERD
-On Nexium at home, so breakthrough. Last EGD around same time as colonoscopy.
-Continue PPI.
Subjective
Subjective
Date of Service: May 26, 2023
Complains of some pain in the right upper quadrant at the area of the biopsy
Objective
Data Reviewed
Laboratory Data:
Laboratory Results
05/26/23 07:16
05/26/23 07:16
Laboratory Results
PT 15.2 Sec (11.4-14.6) H 05/25/23 07:28
INR 1.22 05/25/23 07:28
Magnesium Cancelled 05/26/23 06:00
Total Bilirubin 0.6 mg/dl (0.2-1.3) 05/26/23 07:16
AST 58 U/L (14-36) H 05/26/23 07:16
ALT 29 U/L (0-35) 05/26/23 07:16
Alkaline Phosphatase 241 U/L (38-126) H 05/26/23 07:16
Vital Signs and I&O:
Vital Signs
Temp Pulse Resp BP Pulse Ox
99.4 F 83 18 126/69 96
05/26/23 07:03 05/26/23 07:03 05/26/23 07:03 05/26/23 07:03 05/26/23 07:03
I&O
05/25/23 05/26/23 05/27/23
06:59 06:59 06:59
Intake Total 870 / 870
Balance 870 / 870
Physical Exam
Physical Exam
GI: Soft, Non Distended and Normal Bowel Sounds
--- NOTE | 2023-05-26 13:51 | CON.ID ---
Consultation
-
Date/Time Consultation Requested: 05/26/23 12:44
Date/Time Consultation Performed: 05/26/23 13:53
Requesting Provider: Dr Andrews
Performing Provider: Dr Siegel
Reason for Consultation: fever, liver lesions
Chief Complaint / Past History
Chief Complaint
fever cough
History of Present Illness
Ms Ram is a 67 year old female with history notable for R lumpectomy (benign), cholecystecotmy, who presented here 05/24 for fever, cough, abdominal pain, R flank pain. Cough essentially chronic at 12 week. Also 40 lb unintentional weight loss sine
September 2022. Treated with empiric courses of doxycycline (04/28 - 05/04) and azithromycin (05/09 - 05/13) without improvement in her symptoms and without infiltrate on cxr. Then two days prior to arrival developed fevers to 104.0 at home and was advised
to come to the ER. Last colonoscopy 5-7 years ago
Since arrival here intermittently febrile until todya - tmax 102.8, bp stable, initially with mild leukocytosis wbc 11 now 7.4, hgb 11.8, plt 210, L shift noted on admission resolved today, eosinophils initially were not present and have returned at
normal levels, cr 0.7, lactic acid 1.2, t bili 0.6 ast 58, alk 29, alk phos 241, AFB 893, CEA 0.71, ca 19-9 pending
Past History
Additional Past Medical History:
GERD
Additional Past Surgical History:
Right DONNA
Lap Cholecystectomy
Bladder Sling
Right Lumpectomy (benign)
T&A
[place]
Allergy History:
bee venom protein (honey bee) Allergy (Verified 05/24/23 16:01)
hives, racing heart
morphine Allergy (Verified 05/24/23 16:01)
Itching
oxycodone HCl [From Percocet] Allergy (Verified 05/24/23 16:01)
itching, tightness
Penicillins Allergy (Verified 05/24/23 16:01)
rash, tight throat
propoxyphene napsylate [From Darvocet-N 100] Allergy (Verified 05/24/23 16:01)
itching, tightness
shellfish derived Allergy (Verified 05/24/23 16:01)
tight, itchy throat
Medications Reviewed: Yes
Social History
Tobacco: Non-Smoker
Alcohol: Occasional
Drug: None
Family History
Family History: Not Pertinent
Review of Systems
Review of Systems
General: Fever
All systems: All other systems were reviewed and were negative
Vital Signs
Temp Pulse Resp BP Pulse Ox
98.8 F 83 16 136/74 97
05/26/23 11:20 05/26/23 11:20 05/26/23 11:20 05/26/23 11:20 05/26/23 11:20
Physical Exam
Physical Exam
Constitutional: No Acute Distress
Cardiovascular: Regular Rate and S1/S2; Negative Murmur or Rub
Pulmonary: Clear and Symmetric; Negative Wheezes, Rales or Rhonchi
Gastrointestinal: Soft, Non Tender, Non Distended and Normal Bowel Sounds
Skin: Warm and Dry; Negative Rash or Jaundice
Lab / Diagnostic Study Results
05/26/23 07:16
05/26/23 07:16
Abs Immat Gran (auto) 0.1 10^3/uL (0-0.05) H 05/26/23 07:16
Absolute Neuts (auto) 5.3 10^3/uL (1.4-6.5) 05/26/23 07:16
Absolute Lymphs (auto) 0.7 10^3/uL (1.2-3.4) L 05/26/23 07:16
Absolute Monos (auto) 1.1 10^3/uL (0.1-0.6) H 0210/24 07:16
Absolute Basos (auto) 0.0 10^3/uL (0-0.2) 05/26/23 07:16
Immature Gran % 0.8 % (0-0.5) H 05/26/23 07:16
Neutrophils % 71.9 % (42.2-75.2) 05/26/23 07:16
Lymphocytes % 10.0 % (20.5-51.1) L 05/26/23 07:16
Monocytes % 14.3 % (1.7-9.3) H 05/26/23 07:16
Eosinophils % 2.6 % (0-6) 05/26/23 07:16
Basophils % 0.4 % (0-2) 05/26/23 07:16
PT 15.2 Sec (11.4-14.6) H 05/25/23 07:28
INR 1.22 05/25/23 07:28
Lactic Acid Cancelled 05/24/23 21:30
Ur Squamous Epith Cells >30 /LPF (Few) 05/24/23 18:36
Microbiology Results
Micro:
05/24/23 18:40 Blood Culture - Preliminary
Blood/Venous No Growth in 24 hours- Final report to follow
05/24/23 17:37 Blood Culture - Preliminary
Blood/Venous No Growth in 24 hours- Final report to follow
05/24/23 20:42 Influenza Types A & B (ARTURO) - Final
Nasal Swab Negative for Influenza A & B, NAAT
Negative results must be combined with clinical observations
and patient history.
Nucleic Acid Amplification test (NAAT)performed on the
[employer] ID NOW platform.
Assessment / Plan
Fever
COVID Infection - mild
- saturating well on room air
- fevers may be improving
- agree with paxlovid - for 5 day course
- stable for dc from ID perspective
Hepatic Mass
- elevated AFB notable, CEA normal, ca 19-9 pending
- path is pending, lesion was solid, unlikely to be infection with elevated tumor markers
- 2 covid ag positive
- hep C neg 2019, agree with hep B screen - added core
- suspect tumor, as fever acute and resolving most likely due to covid
- further workup per GI, oncology
Care Review
Plan reviewed with: Physician (Dr Andrews - history)
[2023-05-26 15:02] VITALS: BP 129/77
[2023-05-26] MEDS: ROBITUSSIN AC 10 ML PO ×2 (17:54→22:12)
[2023-05-26] MEDS: TYLENOL 650 MG PO (20:29)
[2023-05-26] MEDS: TORADOL 15 MG IV (20:32)
[2023-05-26 23:38] VITALS: BP 117/58
[2023-05-27 04:06] LABS: CA 19-9 8193 U/mL (<=35)
[2023-05-27] MEDS: ROBITUSSIN AC 10 ML PO ×4 (04:31→23:03)
[2023-05-27 07:00] VITALS: BP 129/68
--- NOTE | 2023-05-27 07:25 | W.PN.HOSP.TC ---
Today's Communication/Plan
-
see bold
Assessment / Plan
Assessment / Plan
67y F with PMH significant for GERD who presented complaining of fever, cough and abdominal pain.
Gen: NAD, AAOx3.
Eyes: EOMI, PERRLA, no scleral icterus.
Neck: supple.
CV: remains RRR, +S1/S2, no m/r/g.
Resp: remains CTAB, no rales, wheezes, or rhonchi.
Abd: +BS, soft, NT, ND
Skin: No rashes.
Neuro: remains CN 2-12 intact, non-focal.
Psych: Normal mood and affect.
05/24/23 18:40 Blood/Venous Blood Culture - Preliminary
No Growth in 48 hours- Final report to follow
05/24/23 17:37 Blood/Venous Blood Culture - Preliminary
No Growth in 48 hours- Final report to follow
05/24/23 20:42 Nasal Swab Influenza Types A & B (ARTURO) - Final
Negative for Influenza A & B, NAAT
Negative results must be combined with clinical observations
and patient history.
Nucleic Acid Amplification test (NAAT)performed on the
[employer] ID NOW platform.
CT C/A/P: No acute pathology of the chest, abdomen pelvis identified. Findings suggesting hepatic metastasis. A small abscess in the upper posterior right lobe of the liver cannot be excluded. Comparison is difficult because the prior study was
performed without IV contrast. Hepatic cysts. Grossly stable. Minimal free fluid about the liver probably ascites. Probably stable. Mild hepatomegaly. Progressed.
Hepatic Lesions:
-? tumor fever secondary to apparent metastases v hepatic abscess(es).
-was on Levaquin/Flagyl given penicillin allergy, now off abx as IR guided drainage without fluid, follow Bx path
-BCx NGTD
-AFP 893, CEA 0.71, CA 19-9 8193
-GI Following
-check MRI Liver (give Robitussin-AC 30min prior to MRI)
-c/s ONC
Acute COVID infection: Paxlovid started (no drug interactions). Fever likely due to COVID.
GERD: cont PPI
FULL/SCDs
Anticipated Discharge: 24 - 48 hours
Subjective/Interval History
-
Date of Service: May 27, 2023
No new complaints.
Objective Data
-
Vital Signs:
Vital Signs
Temp Pulse Resp BP Pulse Ox
97.8 F 72 16 117/58 97
05/27/23 04:00 05/26/23 23:38 05/26/23 23:38 05/26/23 23:38 05/26/23 23:38
I&O
05/26/23 05/27/23 05/28/23
06:59 06:59 06:59
Intake Total 870 / 870 1380 / 1380
Balance 870 / 870 1380 / 1380
[2023-05-27] MEDS: PROTONIX IV 40 MG IV (08:41)
[2023-05-27] MEDS: PAXLOVID 2X150 MG-100 MG DOSE PACK 1 DOSE PO ×2 (08:41→21:09)
[2023-05-27] MEDS: NSS (PRESERVATIVE FREE) 10 ML IV (09:21)
[2023-05-27] MEDS: NSS (PRESERVATIVE FREE) 0.25 ML IV (10:39)
[2023-05-27] MEDS: ATIVAN 0.5 MG IV (10:39)
--- NOTE | 2023-05-27 11:47 | CON.ONC ---
Impression
Impression
liver lesions
elevated AFP
COVID-19 positivity
abdominal discomfort
Plan
Plan
1. Multiple liver lesions on CT imaging - w/ elevated AFP
-this constellation of findings is concerning for possible hepatocellular carcinoma
-s/p liver biopsy - await pathology
-MRI abdomen pending
-once MRI complete and pathology available for review, additional discussion will be had about findings and potential oncologic treatment options
Will continue to follow with you.
Patient History
History of Present Illness
68y/o female seen in consultation regarding liver lesions.
The patient was admitted wirh right upper quadrant abdominal pain and COVID19 positivity. CT imaging of the chest/abd/pelvis revealed liver to be enlarged w/multiple various sized rounded hypodense hepatic lesions, most in the right lobe of liver,
concerning for metastatic disease. The largest is in the posterior right lobe and measures approximately 8.7 cm. There are a few additional well-circumscribed hypodense hepatic lesions consistent with cysts. The largest in the left lobe of the
liver. It measures 4.5 cm. There is a ring-enhancing mass in the posterior superior right lobe liver that may represent neoplasm or infection. No other areas outside of liver to suggest primary occult malignancy.
AFP is elevated at 8193, concerning for hepatocellular carcinoma. The patient underwent liver biopsy w/ IR. A abdominal MRI is pending.
Clinically, she feels slightly better. No fevers. No significant abdominal pain today.
Past-Medical/Surgical History
PMH:
GERD
Fibromyalgia
Anxiety
osteoarthritis
colon polyps
cholelithiasis
PSH:
cholecystectomy
hysterectomy
bladder sling
right THR
Tonsilectomy
right lumpectomy
Social History
Tobacco: Non-Smoker
Alcohol: Occasional (3 times a year)
Drug: None
Personal:
Living: With Family
Family History
Brother colon cancer
brother esophageal cancer
sister breast cancer
Allergies: morphine, oxycodone, PCN, darvocet
Patient Medication
Medication Instructions Recorded Confirmed Last Taken Type
cholecalciferol (vitamin D3) 10 400 units PO DAILY Supplement 06/03/19 05/24/23 05/24/23 History
mcg (400 unit) tablet (Vitamin D3)
esomeprazole magnesium 20 mg 20 mg PO DAILY Gastrointestinal 06/03/19 05/24/23 05/24/23 History
capsule,delayed release (Nexium Issue
24HR)
omega 1-prb-xkt-fish oil 1,000 mg 1 cap PO DAILY High Cholesterol ##0 11/16/22 05/24/23 05/24/23 History
(120 mg-180 mg) capsule (Fish Oil)
albuterol sulfate 90 mcg/actuation 2 puff inhalation R Q4 PRN 05/24/23 05/24/23 Unknown History
aerosol inhaler sob/wheezing
benzonatate 200 mg capsule 200 mg PO TID Cough 05/24/23 05/24/23 05/24/23 History
multivitamin 1 tab PO DAILY Supplement 05/24/23 05/24/23 05/24/23 History
Active Medications
Generic Name Dose Route Start Last Admin
Trade Name Freq PRN Reason Stop Dose Admin
Acetaminophen 650 mg 05/24/23 21:44 05/26/23 20:29
Acetaminophen 325 Mg Tablet PO 06/21/23 21:43 650 mg
Q4HPRN PRN Administration
Mild Pain / Temp > 101
Benzonatate 200 mg 05/24/23 21:44 05/26/23 20:29
Benzonatate 100 Mg Capsule PO 06/21/23 21:43 200 mg
TIDPRN PRN Administration
cough
Guaifenesin/Codeine Phosphate 10 ml 05/26/23 13:32 05/27/23 10:38
Guaifenesin/Codeine Solution (200 Mg/20 Mg) 10 Ml Cup PO 06/23/23 13:31 10 ml
Q4HPRN PRN Administration
cough
Ketorolac Tromethamine 15 mg 05/24/23 21:44 05/26/23 20:32
Ketorolac 15 Mg/Ml Injection IV 05/29/23 21:43 15 mg
Q6HPRN PRN Administration
moderate pain
Nirmatrelvir/Ritonavir 1 dose 05/25/23 09:45 05/27/23 08:41
Nirmatrelvir 300 Mg/Ritonavir 100 Mg (Paxlovid 300 Mg;100 Mg Dose Pack) PO 05/29/23 20:01 1 dose
BID TAYLOR Administration
Pantoprazole Sodium 40 mg 05/25/23 08:00 05/27/23 08:41
Pantoprazole Sodium 40 Mg/10 Ml Vial IV 06/22/23 07:59 40 mg
DAILY TAYLOR Administration
Prochlorperazine Edisylate 5 mg 05/24/23 21:44
Prochlorperazine 10 Mg/2 Ml Vial IV 06/21/23 21:43
Q6HPRN PRN
Nausea
Sodium Chloride 0 flush 05/24/23 22:00
Sodium Chloride 0.9% (Flush) Syringe IV 06/21/23 21:59
PER PROTOCOL TALYOR
Sodium Chloride 10 ml 05/25/23 08:00 05/27/23 09:21
Sodium Chloride 0.9% (Preservative Free) 10 Ml Vial IV 06/22/23 07:59 10 ml
DAILY TAYLOR Administration
Review of Systems
-
A full ROS was obtained w/ pertinent findings as per HPI.
Physical Exam
-
Limited physical exam was performed due to patient's COVID-19 positivity
General: Well Developed and No Apparent Distress
Neurology: Other (Alert and oriented x3, speech normal)
Labs
Lab Results
WBC 7.4 10^3/uL (4.8-10.8) 05/26/23 07:16
RBC 4.04 10^6/uL (4.20-5.40) L 05/26/23 07:16
Hgb 11.8 g/dL (12.0-16.0) L 05/26/23 07:16
Hct 35.2 % (37.0-47.0) L 05/26/23 07:16
MCV 87.1 fL (81.0-99.0) 05/26/23 07:16
MCH 29.2 pg (27.0-31.0) 05/26/23 07:16
MCHC 33.5 g/dL (33.0-37.0) 05/26/23 07:16
RDW 13.7 % (11.5-14.5) 05/26/23 07:16
Plt Count 210 10^3/uL (130-400) 05/26/23 07:16
MPV 10.0 fL (7.4-10.4) 05/26/23 07:16
Abs Immat Gran (auto) 0.1 10^3/uL (0-0.05) H 05/26/23 07:16
Absolute Neuts (auto) 5.3 10^3/uL (1.4-6.5) 05/26/23 07:16
Absolute Lymphs (auto) 0.7 10^3/uL (1.2-3.4) L 05/26/23 07:16
Absolute Monos (auto) 1.1 10^3/uL (0.1-0.6) H 05/26/23 07:16
Absolute Eos (auto) 0.2 10^3/uL (0-0.7) 05/26/23 07:16
Absolute Basos (auto) 0.0 10^3/uL (0-0.2) 05/26/23 07:16
Immature Gran % 0.8 % (0-0.5) H 05/26/23 07:16
Neutrophils % 71.9 % (42.2-75.2) 05/26/23 07:16
Lymphocytes % 10.0 % (20.5-51.1) L 05/26/23 07:16
Monocytes % 14.3 % (1.7-9.3) H 05/26/23 07:16
Eosinophils % 2.6 % (0-6) 05/26/23 07:16
Basophils % 0.4 % (0-2) 05/26/23 07:16
Creatinine 0.7 mg/dL (0.6-1.0) 05/26/23 07:16
Vital Signs
Vital Signs
Temp Pulse Resp BP Pulse Ox
99.0 F 75 18 129/68 94
05/27/23 07:00 05/27/23 07:00 05/27/23 07:00 05/27/23 07:00 05/27/23 10:52
--- NOTE | 2023-05-27 14:13 | W.PN.ID1 ---
Date of Service
Date of Service: May 27, 2023
Today's Communication
paxlovid x5 days
ID service will no longer actively follow this patient please recall for further questions
Assessment / Plan
Fever
COVID Infection - mild
- saturating well on room air
- fevers may be improving
- agree with paxlovid - for 5 day course
Hepatic Mass
- elevated AFB notable, CEA normal, ca 19-9 pending
- path is pending, lesion was solid, unlikely to be infection with elevated tumor markers
- / covid ag positive
- hep C neg 2019, agree with hep B screen - added core
- suspect tumor, as fever acute and resolving most likely due to covid
- further workup per GI, oncology
ID service will no longer actively follow this patient please recall for further questions
Chief Complaint
-: Fever and Other (covid)
Subjective / Review of Systems
fever curve improving
bp stable
remains on room air
abd MRI read pending
blood cultures no growth to date
Vital Signs / Physical Exam
Vital Signs
Vital Signs
Temp Pulse Resp BP Pulse Ox
99.0 F 75 18 129/68 94
05/27/23 07:00 05/27/23 07:00 05/27/23 07:00 05/27/23 07:00 05/27/23 10:52
Physical Exam
Constitutional: No Acute Distress
Cardiovascular: Regular Rate and S1/S2; Negative Murmur or Rub
Pulmonary: Clear and Symmetric; Negative Wheezes or Rales
Gastrointestinal: Soft, Non Tender, Non Distended and Normal Bowel Sounds
Skin: Warm and Dry; Negative Rash or Jaundice
Objective Data
Lab Data
Lab Results
05/26/23 07:16
05/26/23 07:16
PT 15.2 Sec (11.4-14.6) H 05/25/23 07:28
INR 1.22 05/25/23 07:28
Estimated Creat Clear 82 ml/min 05/26/23 07:16
Lactic Acid Cancelled 05/24/23 21:30
Total Bilirubin 0.6 mg/dl (0.2-1.3) 05/26/23 07:16
GGT 192 U/L (12-43) H 05/25/23 10:41
AST 58 U/L (14-36) H 05/26/23 07:16
ALT 29 U/L (0-35) 05/26/23 07:16
Alkaline Phosphatase 241 U/L (38-126) H 05/26/23 07:16
Most recent labs reviewed.
Micro Results:
05/24/23 18:40 Blood Culture - Preliminary
Blood/Venous No Growth in 48 hours- Final report to follow
05/24/23 17:37 Blood Culture - Preliminary
Blood/Venous No Growth in 48 hours- Final report to follow
05/24/23 20:42 Influenza Types A & B (ARTURO) - Final
Nasal Swab Negative for Influenza A & B, NAAT
Negative results must be combined with clinical observations
and patient history.
Nucleic Acid Amplification test (NAAT)performed on the
[employer] platform.
[2023-05-27 15:00] VITALS: BP 128/69
[2023-05-27] MEDS: TORADOL 15 MG IV (23:03)
[2023-05-27 23:22] VITALS: BP 132/74
[2023-05-28 07:00] VITALS: BP 98/76
--- NOTE | 2023-05-28 07:31 | W.PN.HOSP.TC ---
Addendum entered and electronically signed by Red Andrews MD 05/28/23 11:23:
Mild protein calorie malnutrition
Original Note:
Today's Communication/Plan
-
see bold
Assessment / Plan
Assessment / Plan
67y F with PMH significant for GERD who presented complaining of fever, cough and abdominal pain.
Gen: NAD, AAOx3.
Eyes: EOMI, PERRLA, no scleral icterus.
Neck: supple.
CV: continues to remain RRR, +S1/S2, no m/r/g.
Resp: continues to remain CTAB, no rales, wheezes, or rhonchi.
Abd: +BS, soft, NT, ND
Skin: No rashes.
Neuro: continues to remain CN 2-12 intact, non-focal.
Psych: Normal mood and affect.
05/24/23 18:40 Blood/Venous Blood Culture - Preliminary
No Growth in 72 hours- Final report to follow
05/24/23 17:37 Blood/Venous Blood Culture - Preliminary
No Growth in 72 hours- Final report to follow
05/24/23 20:42 Nasal Swab Influenza Types A & B (ARTURO) - Final
Negative for Influenza A & B, NAAT
Negative results must be combined with clinical observations
and patient history.
Nucleic Acid Amplification test (NAAT)performed on the
[employer] ID NOW platform.
CT C/A/P: No acute pathology of the chest, abdomen pelvis identified. Findings suggesting hepatic metastasis. A small abscess in the upper posterior right lobe of the liver cannot be excluded. Comparison is difficult because the prior study was
performed without IV contrast. Hepatic cysts. Grossly stable. Minimal free fluid about the liver probably ascites. Probably stable. Mild hepatomegaly. Progressed.
MRI abdomen:
1. � As on the CT there are multiple varying size rim-enhancing lesions most consistent with either metastatic disease or primary liver malignancy, HCC. The lesion at the dome of the right hepatic lobe posteriorly has the appearance of necrosis with
a rim-enhancing center. Again, this is likely malignancy, however superimposed infection cannot be completely excluded. Patient underwent a biopsy 2 days ago. Awaiting pathology results.
2. � There is no abnormal adenopathy.
3. � No significant biliary ductal dilatation.
4. � There is hepatosplenomegaly. Solid organs otherwise unremarkable.
Hepatic Lesions:
-likely malignancy
-was on Levaquin/Flagyl given penicillin allergy, now off abx as IR guided drainage without fluid, follow Bx path
-BCx NGTD
-AFP 893, CEA 0.71, CA 19-9 8193
-GI Following
-ONC saw in c/s, concern for HCC
Acute COVID infection: Paxlovid started (no drug interactions), complete 5 days. Fever likely due to COVID.
GERD: cont PPI
FULL/SCDs
Medically cleared for d/c.
Total time spent on d/c = 31 min. This included today's physical exam, progress note, review of laboratory and diagnostic data, preparation of discharge documents and prescriptions, and discussions about the pt's hospital course and discharge plan
with the patient and other medical education manager involved in the patient's care.
Anticipated Discharge: Today
Subjective/Interval History
-
Date of Service: May 28, 2023
No new complaints.
Objective Data
-
Vital Signs:
Vital Signs
Temp Pulse Resp BP Pulse Ox
98.5 F 92 20 132/74 96
05/28/23 00:50 05/27/23 23:22 05/27/23 23:22 05/27/23 23:22 05/28/23 00:59
I&O
05/27/23 05/28/23 05/29/23
06:59 06:59 06:59
Intake Total 1380 / 1380 1280 / 1280
Balance 1380 / 1380 1280 / 1280
[2023-05-28] MEDS: PAXLOVID 2X150 MG-100 MG DOSE PACK 1 DOSE PO (08:41)
[2023-05-28] MEDS: ROBITUSSIN AC 10 ML PO ×2 (08:41→13:11)
[2023-05-28] MEDS: NSS (PRESERVATIVE FREE) 10 ML IV (08:45)
[2023-05-28] MEDS: PROTONIX IV 40 MG IV (08:46)
--- NOTE | 2023-05-28 10:33 | PN.CDI ---
CDI
- -
CDI:
Physician Documentation Request
Admit Date: 05/24/23 20:56
Dear Doctor Darryl,
Clinical Indicators:
Patient admitted with hepatic lesions, likely malignancy.
05/25 note/assessment: ' Per ASPEN/AND guidelines, pt meets for mild malnutrition in the context of chronic illness as evidenced by 10.7% weight loss x 6 months, <75% intake est needs x > 3 months'
Based on the information, which of the following most accurately represents the patient's nutritional status?
Mild Malnutrition
No nutritional deficiency
Other (please specify)
Unable to determine
[place] Criteria ([facility] Hospitalist 2017)
2 or more criteria must be present for either
non severe or severe malnutrition
Note that the criteria differs related to the
presence of an acute or chronic illness
Acute Illness Chronic Illness
Energy Intake Non Severe: <75% for >7 days Non Severe: <75% for >1 month
Severe: <50% for >5 days Severe: <75% for >1 month
Weight Loss Non Severe: 1-2% over 1 week Non Severe: 5% over 1 month
5% over 1 month 7.5% over 3 months
7.5% over 3 months 10% over 6 months
1 year N/A 20% over 1 year
Severe: >2% over 1 week Severe: >5% over 1 month
>5% over 1 month >7.5% over 3 months
>7.5% over 3 months >10% over 6 months
1 year N/A >20% over 1 year
Body Fat Non Severe: Mild Decrease Non Severe: Mild Loss
Severe: Moderate Decrease Severe: Severe Loss
Muscle Mass Non Severe: Mild Decrease Non Severe: Mild Loss
Severe: Moderate Decrease Severe: Severe Loss
Fluid Accumulation Non Severe: Mild Accumulation Non Severe: Mild Accumulation
Severe: Moderate to severe Severe: Moderate to severe
accumulation accumulation
Reduced Luncheon[employer] Strength Non Severe: N/A Non Severe: N/A
Severe: Measurably reduced Severe: Measurably reduced
Additional criteria that can be used to Determine if Mild or Moderate Malnutrition ([employer] Manual 2018)
Mild Moderate Severe
Albumin gm/dl <3.0 gm/dl <2.5 gm/dl <2.0 gm/dl
Pre Albumin mg/dl <15 gm/dl <10 mg/dl <5.0 mg/dl
BMI <18.5 <17 <16
Use of terms such as suspected, likely, concern for, or probable (associated with a specific diagnosis that is being evaluated, monitored, or treated as if it exists) are acceptable and can be coded in the inpatient setting, when documented at the
time of discharge.
Thank you,
LINDA Jernigan RN
CDI Specialist
available via tiger text
Please use your independent medical judgment in providing your response.
--- NOTE | 2023-05-28 12:38 | W.PN.GI.CBS2 ---
Today's Communication / Plan
-
Impression/Plan:
1. Hepatic lesions, rule out primary versus metastatic lesions
MRI confirming CT findings
Status post IR biopsy of the liver lesion, await pathology
Hepatitis B/C serologies pending
Elevated alpha-fetoprotein and CA 19�9, normal CEA
2. Elevated Liver enzymes
--Could be secondary to lesions, Covid, recent abx
-
3. COVID
-Not requiring supplemental oxygen
5. Hx of colon polyps/Family hx colon cancer in first degree relative
-Overdue for repeat colonoscopy. Per patient last colonoscopy 8-9 years ago and had polyp at that time. Brother with colon ca.
6. GERD
-On Nexium at home, so breakthrough. Last EGD around same time as colonoscopy.
-Continue PPI.
Suggested patient can call PCPs office if biopsy results are not back by the time she is discharged, I asked the unit manager to give her the CDs of CT/MRI with report and all the blood .work
Assessment / Plan
-
67 y/o female with PMH of fibromyalgia, anxiety, osteoarthritis, GERD, personal hx of colon polyps, cholelithiasis s/p cholecystectomy 11/2022 who presents to the ER with cough x 2 months, fever, and RUQ pain. Recently as an outpatient she was
treated with Doxycycline (04/28/23-05/04/23) and Azithromycin
(05/09/23-05/13/23) for her cough without any change in sx. Patient was found to be positive for COVID. She was also found to multiple liver lesions in the right lobe of the liver prompting GI consultation. CT of the abdomen and pelvis without IV or
oral contrast performed on 10/14/2022 showed subcentimeter simple hepatic cyst and larger 5 cm simple cyst. There was a markedly ill-defined somewhat heterogeneous area of decreased attenuation suggested throughout the posterior segment of the right
lobe of the liver that was new in the interval since prior study measuring at least 10 cm. These findings could represent tumor or infection. The patient now returns with repeat CT findings of the chest abdomen and pelvis with IV contrast
performed on 05/24/2023 showing liver enlarged at 19.7 cm previously measuring 18.9 cm. Multiple various sized rounded hypodense hepatic lesions mostly in the right lobe of the liver concerning for metastatic disease. There are a few additional
well-circumscribed hypodense lesions consistent with cysts. There is a ring-enhancing mass in the posterior superior right lobe of the liver measuring 1.7 cm. This may represent neoplasm or infection. There is minimal free fluid about the liver.
The patient has a total bilirubin of 0.6 with a direct of 0.6, AST of 65 down from 69, ALT of 37 down from 39 and an alk phos of 282 down from 293. Of note the patient has always had a mildly elevated alk phos dating back to 2010. The patient had
mildly elevated AST (76) and ALT (55), alk phos (128) on 11/21/22 the day following cholecystectomy.
MRI abdomen-IMPRESSION:
1. � As on the CT there are multiple varying size rim-enhancing lesions most consistent with either metastatic disease or primary liver malignancy, HCC. The lesion at the dome of the right hepatic lobe posteriorly has the appearance of necrosis with
a rim-enhancing center. Again, this is likely malignancy, however superimposed infection cannot be completely excluded. Patient underwent a biopsy 2 days ago. Awaiting pathology results.
2. � There is no abnormal adenopathy.3. � No significant biliary ductal dilatation. 4. � There is hepatosplenomegaly. Solid organs otherwise unremarkable.
Impression/Plan:
1. Hepatic lesions, rule out primary versus metastatic lesions
MRI confirming CT findings
Status post IR biopsy of the liver lesion, await pathology
Hepatitis B/C serologies pending
Elevated alpha-fetoprotein and CA 19�9, normal CEA
2. Elevated Liver enzymes
--Could be secondary to lesions, Covid, recent abx
-
3. COVID
-Not requiring supplemental oxygen
5. Hx of colon polyps/Family hx colon cancer in first degree relative
-Overdue for repeat colonoscopy. Per patient last colonoscopy 8-9 years ago and had polyp at that time. Brother with colon ca.
6. GERD
-On Nexium at home, so breakthrough. Last EGD around same time as colonoscopy.
-Continue PPI.
Suggested patient can call PCPs office if biopsy results are not back by the time she is discharged, I asked the unit manager to give her the CDs of CT/MRI with report and all the blood .work
Subjective
Subjective
Date of Service: May 28, 2023
Patient reports some discomfort in the area of the liver biopsy but otherwise doing well
Objective
Data Reviewed
Laboratory Data:
Laboratory Results
05/26/23 07:16
05/26/23 07:16
Laboratory Results
PT 15.2 Sec (11.4-14.6) H 05/25/23 07:28
INR 1.22 05/25/23 07:28
Magnesium Cancelled 05/26/23 06:00
Total Bilirubin 0.6 mg/dl (0.2-1.3) 05/26/23 07:16
AST 58 U/L (14-36) H 05/26/23 07:16
ALT 29 U/L (0-35) 05/26/23 07:16
Alkaline Phosphatase 241 U/L (38-126) H 05/26/23 07:16
Vital Signs and I&O:
Vital Signs
Temp Pulse Resp BP Pulse Ox
98.5 F 82 16 98/76 96
05/28/23 07:00 05/28/23 07:00 05/28/23 07:00 05/28/23 07:00 05/28/23 07:00
I&O
05/27/23 05/28/23 05/29/23
06:59 06:59 06:59
Intake Total 1380 / 1380 1280 / 1280
Balance 1380 / 1380 1280 / 1280
Physical Exam
Physical Exam
GI: Soft, Non Distended and Non Tender
[2023-05-28] MEDS: TORADOL 15 MG IV (13:11)
--- NOTE | 2023-05-28 13:11 | CM ---
Patient has been medically cleared for discharge to home with no additional skilled services. Family will transport home.
--- NOTE | 2023-05-28 13:13 | W.DCSUMMARY ---
Discharge Summary
Discharge Data
Date of Admission: 05/24/23
Date of Discharge: 05/28/23
-
Pending Results: Yes
Additional Pending Results:
Liver biopsy pathology results
Hospital Course
Primary diagnoses:
Hepatic lesions
Acute COVID infection
Secondary diagnoses:
Gastroesophageal reflux disease
Mild protein calorie nutrition
Consultants:
Oncology
Gastroenterology
Infectious disease
Imaging:
CT C/A/P: No acute pathology of the chest, abdomen pelvis identified. Findings suggesting hepatic metastasis. A small abscess in the upper posterior right lobe of the liver cannot be excluded. Comparison is difficult because the prior study was
performed without IV contrast. Hepatic cysts. Grossly stable. Minimal free fluid about the liver probably ascites. Probably stable. Mild hepatomegaly. Progressed.
MRI abdomen:
1. � As on the CT there are multiple varying size rim-enhancing lesions most consistent with either metastatic disease or primary liver malignancy, HCC. The lesion at the dome of the right hepatic lobe posteriorly has the appearance of necrosis with
a rim-enhancing center. Again, this is likely malignancy, however superimposed infection cannot be completely excluded. Patient underwent a biopsy 2 days ago. Awaiting pathology results.
2. � There is no abnormal adenopathy.
3. � No significant biliary ductal dilatation.
4. � There is hepatosplenomegaly. Solid organs otherwise unremarkable.
Hospital course: 68-year-old female initially presented with chief complaints of fever, cough, abdominal pain as outlined in H&P done on admission. Patient was found to be COVID-positive on admission. She was not hypoxemic and had no pneumonia on
imaging. She was started on Paxlovid at the time of discharge will complete 5 days of therapy. Imaging of the abdomen pelvis was notable for hepatic lesions which were likely malignancy. There was concern for abscess/infection the patient was on
Levaquin and Flagyl. She had an IR guided drainage that was without fluid. Biopsy was sent and the pathology is pending at this time. Antibiotics were stopped as there was no fluid drained on IR guided drainage attempt. Blood cultures were no
growth to date. AFP 893, CEA 0.71, CA 19-9 [id number]. Patient was discharged in medically stable condition
Discharge Plan
-
Patient Disposition: Home (Routine Discharge)
Discharge Diagnosis/Procedures: liver lesions, concern for hepatocellular carcinoma
Condition: Good
Diet: No restrictions
Activity: As tolerated
Driving Restrictions: As prior to admission
Bathing Restrictions: None
Activity Restrictions/Additional Instructions:
You need to follow the results of your liver mass biopsy.
Referrals:
Belkys Plasencia MD [Active] - in one week
Yanni Kuo DO [Family Provider] - in less than 1 week
Prescriptions:
New
Paxlovid 300 mg (150 mg x 2)-100 mg Tablets,Dose Pack
2 ea PO BID Qty: 20 0RF
Rx Instructions:
last dose 05/29/23PM
benzonatate 100 mg Capsule
200 mg PO TIDPRN PRN (Reason: cough) Qty: 30 0RF
Continued
cholecalciferol (vitamin D3) [Vitamin D3] 400 UNITS tablet
400 units PO DAILY
esomeprazole magnesium [Nexium 24HR] 20 MG capsule,delayed release(DR/EC)
20 mg PO DAILY
omega 6-icg-cdt-fish oil [Fish Oil] 1,000 mg (120 mg-180 mg) Capsule
1 cap PO DAILY Qty: 0
multivitamin Tablet
1 tab PO DAILY
benzonatate 200 mg capsule
200 mg PO TID
albuterol sulfate 90 mcg/actuation HFA aerosol inhaler
2 puff INHALATION R Q4 PRN (Reason: sob/wheezing)
Discharge Orders:
Discharge Patient (As Directed); Ordered 05/28/23
Ordered By: Red Andrews
[2023-05-28 19:25] LABS: Hepatitis B Surface Antigen Negative (Negative)
[2023-05-28 19:43] LABS: Hepatitis B Core Ab, Total Negative (Negative); Hepatitis B Surface Antibody Negative; Hepatitis C Antibody Negative (Negative)
== END 2023-05-28 13:29 | disposition home or self-care (01) | DRG 435 ==
LOC: 2 NORTH 20:56
PROVIDERS: Nurse Practitioner; Radiology Vascular & Interventional Radiology; Student in an Organized Health Care Education/Training Program; ADMITTING PHYSICIAN Hospitalist; ATTENDING PHYSICIAN Internal Medicine; CONSULT PHYSICIAN Internal Medicine Gastroenterology; CONSULT PHYSICIAN Internal Medicine Hematology & Oncology; CONSULT PHYSICIAN Student in an Organized Health Care Education/Training Program; EMERGENCY PHYSICIAN Emergency Medicine; FAMILY PHYSICIAN Family Medicine
PROC: 0FB03ZX Excision of Liver, Percutaneous Approach, Diagnostic (ICD-10-PCS; 2023-05-25)
DX: C22.0 Liver cell carcinoma (principal); U07.1 COVID-19; J98.11 Atelectasis; E44.1 Mild protein-calorie malnutrition; K76.89 Other specified diseases of liver; K21.9 Gastro-esophageal reflux disease without esophagitis; Z87.19 Personal history of other diseases of the digestive system; M79.7 Fibromyalgia; F41.9 Anxiety disorder, unspecified; M19.90 Unspecified osteoarthritis, unspecified site; Z68.28 Body mass index [BMI] 28.0-28.9, adult
CPT/HCPCS: 88307; 47000; 71260; 74177; 74183; 77012; 80053; 81003; 81015; 82105; 82248; 82378; 82977; 83605; 85025; 85027; 85610; 86301; 86704; 86706; 86803; 87040; 87340; 87502; 87811; 88333; 88341; 88342; 88360; 96374; 99152; 99285; A9575; Q9967